=== PATIENT | female | born 1950 | race Caucasian/White ===

== ENCOUNTER 2021-04-13 19:01 | Emergency (ER) | payer OTHER ==
[~2021-04-13] VITALS: Ht 167.6 cm; Wt 77.1 kg
[2021-04-13] MEDS ORDERED: LEVOTHYROXINE25 MC1 PO (19:18)
[2021-04-13] MEDS ORDERED: METOPROLOL SUCC25 MG PO (19:18)
[2021-04-13] MEDS ORDERED: HYDROCHLOROTHIA25 MG PO (19:19)
--- NOTE | 2021-04-14 06:32 | EKG ---
[facility] [address] [facility] [place], [place] [address] Signed Sinus bradycardia Otherwise normal ECG No previous ECGs available Confirmed by YUDI DUMONT MD [id number] on 04/14/2021 6:32:10 AM Electronically Signed By: YUDI DUMONT MD 04/14/21 0632 PATIENT NAME: CAITLYN COTTRELL Electrocardiogram DATE OF : 54 PHYSICIAN: YUDI DUMONT MD REPORT #: [id number] REPORT IS CONFIDENTIAL AND NOT TO BE RELEASED WITHOUT AUTHORIZATION
== END 2021-04-14 01:25 | disposition home or self-care (01) ==
LOC: ED 19:01
DX: R55 Syncope and collapse (principal); E87.6 Hypokalemia; R74.01 Elevation of levels of liver transaminase levels; I48.91 Unspecified atrial fibrillation; Z88.8 Allergy status to other drugs, medicaments and biological substances; Z79.899 Other long term (current) drug therapy
CPT/HCPCS: 74177; 80053; 83690; 83735; 84484; 85025; 93005; 93010; 99284-25; J7121; Q9967